=== PATIENT | female | born 1975 | race Two or more races ===

== ENCOUNTER 2019-11-18 11:36 | Outpatient (CLI) | payer OTHER | END 2019-11-18 23:59 | disposition home or self-care (01) | LOC: WOU 11:36 | PROVIDERS: ATTEND Surgery | DX: Z48.3 Aftercare following surgery for neoplasm (principal); C50.911 Malignant neoplasm of unspecified site of right female breast; Z90.10 Acquired absence of unspecified breast and nipple; Z79.899 Other long term (current) drug therapy | CPT/HCPCS: G0463 ==

== ENCOUNTER 2020-04-06 12:00 | Outpatient (CLI) | payer OTHER | END 2020-04-06 23:59 | disposition home or self-care (01) | LOC: WOU 12:00 | PROVIDERS: ATTEND Surgery | DX: Z45.811 Encounter for adjustment or removal of right breast implant (principal); Z90.13 Acquired absence of bilateral breasts and nipples; C50.911 Malignant neoplasm of unspecified site of right female breast; Z79.899 Other long term (current) drug therapy | CPT/HCPCS: 99214; J7040; G0463 ==

== ENCOUNTER 2020-04-27 11:30 | Outpatient (CLI) | payer OTHER | END 2020-04-27 23:59 | disposition home or self-care (01) | LOC: WOU 11:30 | PROVIDERS: ATTEND Surgery | DX: C50.911 Malignant neoplasm of unspecified site of right female breast (principal); T85.49XD Other mechanical complication of breast prosthesis and implant, subsequent encounter; Z90.10 Acquired absence of unspecified breast and nipple; Z79.899 Other long term (current) drug therapy | CPT/HCPCS: G0463 ==

== ENCOUNTER 2020-07-20 11:30 | Outpatient (CLI) | payer OTHER | END 2020-07-20 23:59 | disposition home or self-care (01) | LOC: WOU 11:30 | PROVIDERS: ATTEND Surgery | DX: Z48.89 Encounter for other specified surgical aftercare (principal); Z98.82 Breast implant status; Z85.3 Personal history of malignant neoplasm of breast | CPT/HCPCS: G0463 ==

== ENCOUNTER 2020-08-03 10:20 | Outpatient (CLI) | payer OTHER | END 2020-08-03 23:59 | disposition home or self-care (01) | LOC: WOU 10:20 | PROVIDERS: ATTEND Surgery | DX: Z48.89 Encounter for other specified surgical aftercare (principal); N64.4 Mastodynia; Z90.13 Acquired absence of bilateral breasts and nipples; C50.911 Malignant neoplasm of unspecified site of right female breast; T85.49XD Other mechanical complication of breast prosthesis and implant, subsequent encounter; Z79.899 Other long term (current) drug therapy | CPT/HCPCS: G0463 ==

== ENCOUNTER 2020-10-12 11:20 | Outpatient (CLI) | payer OTHER | END 2020-10-12 23:59 | disposition home or self-care (01) | LOC: WOU 11:20 | PROVIDERS: ATTEND Surgery | DX: C50.911 Malignant neoplasm of unspecified site of right female breast (principal); Z90.13 Acquired absence of bilateral breasts and nipples; Z79.899 Other long term (current) drug therapy | CPT/HCPCS: G0463 ==